=== PATIENT | female | born 1995 | race Caucasian/White ===

== ENCOUNTER → 2022-06-06 07:58 | Outpatient (CLI) | payer OTHER, SELFPAY ==
--- NOTE | 2022-06-06 08:01 | DI.MG.S_ITS ---
UNILATERAL RIGHT DIGITAL DIAGNOSTIC MAMMOGRAM 3D/2D: 06/06/2022 CLINICAL: Right breast lump. Comparison is made to exam dated: 06/06/2022 [facility]. The tissue of right breast is extremely dense, which lowers the sensitivity of mammography. There is architectural distortion in the right breast at 12 o'clock posterior depth. This correlates as palpated and with sonographic spiculated mass at 12:00 10cm from nipple measuring 16 x 12 x 15mm. No other significant masses or calcifications are seen in the breast. IMPRESSION: SUSPICIOUS OF MALIGNANCY The 10.5 cm architectural distortion in the right breast is at a high suspicion for malignancy and corresponds to sonographic spiculated mass at 12:00 10cm from nipple measuring 16 x 12 x 15mm. A core biopsy is recommended. Based on the Tyrer Cuzick model (a risk assessment model) the patient's lifetime risk is 14.8% and her 10 year risk is 0.3%. According to the ACR, ACS, and NCCN guidelines, an annual breast MRI exam along with mammogram is recommended if the patient's lifetime risk is 20% or greater. This exam was interpreted at Station ID: [id number]. NOTE: For mammograms, a report in lay terms will be sent to the patient. Approximately 15% of breast malignancies will not be visualized mammographically. In the management of a palpable breast mass, a negative mammogram must not discourage biopsy of a clinically suspicious lesion. Electronically Signed By: dR Vo M.D. lc/:06/06/2022 09:44:25 letter sent: Biopsy Required ACR BI-RADS Category 4c: Suspicious abnormality - moderate concern but not classic for malignancy 3344F
--- NOTE | 2022-06-06 08:01 | DI.US.S_ITS ---
LIMITED ULTRASOUND OF RIGHT BREAST AND AXILLA: 06/06/2022 CLINICAL: Palpable right breast lump. No prior exams were available for comparison. Color flow and real-time ultrasound of the right breast 12 o'clock, and axilla regions were performed. There is a 1.5 cm x 1.6 cm x 1.2 cm mass with a spiculated margin in the right breast at 12 o'clock middle depth 10 cm from the nipple. This mass is hypoechoic. A few prominent axillary lymph nodes are present with fatty joe. IMPRESSION: INCOMPLETE: NEEDS ADDITIONAL IMAGING EVALUATION The 1.5 cm x 1.6 cm x 1.2 cm mass in the right breast is at a moderate suspicion for malignancy. An ultrasound guided biopsy is recommended. A few prominent axillary lymph nodes are present with fatty joe. Mammogram separately reported. This exam was interpreted at Station ID: [id number]. Electronically Signed By: Rd Vo M.D. lc/:06/06/2022 09:18:04 Ultrasound BI-RADS: 0 Indeterminate
== END ==
PROVIDERS: Referring Provider Physician Assistant; Visit Provider Physician Assistant
DX: N63.15 Unspecified lump in the right breast, overlapping quadrants (principal); R92.8 Other abnormal and inconclusive findings on diagnostic imaging of breast
CPT/HCPCS: 76642; 77065; G0279

== ENCOUNTER → 2022-06-21 13:56 | Outpatient (CLI) | payer OTHER, SELFPAY ==
--- NOTE | 2022-06-21 | DI.MG.S_ITS ---
UNILATERAL RIGHT DIGITAL DIAGNOSTIC MAMMOGRAM 3D/2D POST-PROCEDURE IMAGING FOR MARKER PLACEMENT: 06/21/2022 CLINICAL: Right post clip. Comparison is made to exams dated: 06/06/2022 mammogram, 06/06/2022 ultrasound, and 06/21/2022 ultrasound biopsy - [facility]. The tissue of right breast is extremely dense, which lowers the sensitivity of mammography. There is a marker clip in the appropriate position in the right breast at 12 o'clock posterior depth. This marker clip placement is at the biopsy site. IMPRESSION: POST PROCEDURE MAMMOGRAM FOR MARKER PLACEMENT There was a successful marker clip placement in the right breast posterior depth. Based on the Tyrer Cuzick model (a risk assessment model) the patient's lifetime risk is 14.8% and her 10 year risk is 0.3%. According to the ACR, ACS, and NCCN guidelines, an annual breast MRI exam along with mammogram is recommended if the patient's lifetime risk is 20% or greater. This exam was interpreted at Station ID: [id number]. NOTE: For mammograms, a report in lay terms will be sent to the patient. Approximately 15% of breast malignancies will not be visualized mammographically. In the management of a palpable breast mass, a negative mammogram must not discourage biopsy of a clinically suspicious lesion. Electronically Signed By: Daniel cesar/batsheva:06/21/2022 16:41:26 ACR BI-RADS Category Post-procedure mammogram for marker placement
--- NOTE | 2022-06-21 | PATH_ITS ---
[facility] Accession Number: [id number] . 01 Material submitted: . breast - RIGHT BREAST MASS 12:00 APPROX 10 CM FROM NIPPLE . 01 Diagnosis: Right Breast Mass 12 o'clock, Approximately 10 cm from Nipple: Benign hyalinized fibroconnective tissue, portions of fibroadipose tissue, and very scant glandular elements. Negative for atypia or malignancy. No definite features of mass identified; please correlate with clinical and imaging findings. MRV 06/24/2022 1650 Local . 01 Electronically signed: . Petra Rocha MD, Pathologist NPI- [id number] . 01 Gross description: . Received in formalin, labeled right breast 12:00, are multiple pieces of newsome adipose tissue ranging in size from 0.4 x 0.1 x 0.1 cm to 1.0 x 0.4 x 0.3 cm. All pieces are entirely submitted in cassette A1. Collection date and time are listed as 06/21/2022 at 14:55 p.m., for a total approximate fixation time after processing of 50 hours. ([id number]) /FRR 06/22/2022 1238 Local . 01 Pathologist provided ICD-10: N63.10 . 01 CPT . 340159 Specimen Comment: A courtesy copy of this report has been sent to [facility] Performed at: 01 [facility] [address] [place] [address], [place], [place] [id number] MD Arnaldo Jimenez MD Phone: [phone]
--- NOTE | 2022-06-21 | DI.US.S_ITS ---
ULTRASOUND GUIDED BIOPSY RIGHT BREAST USING VACUUM DEVICE WITH MARKING DEVICE INSERTED AND POST DIGITAL MAMMOGRAPHIC AND ULTRASOUND IMAGIN06/21/2022 CLINICAL: Right breast mass. PATIENT CONSENT: Risks (minor bleeding, infection, vasovagal reaction and repeat procedure), benefits and alternatives were explained to the patient and written informed consent was obtained. Correlation is made to exams dated: 06/21/2022 mammogram, 06/06/2022 mammogram, and 06/06/2022 [facility]. An ultrasound guided biopsy using real-time ultrasound was performed for the 1.5 cm x 1.6 cm x 1.2 cm mass located in the right breast at 12 o'clock middle depth 10 cm from the nipple. This was described on the previous ultrasound report. The skin was prepped in the usual manner. Local anesthetic was administered to the access site. A skin andrew was made in the breast. The abnormality was approached from the lateral aspect. A 13 gauge biopsy needle was placed adjacent to the abnormality under ultrasound guidance. Once the needle was documented to be in the correct location, four specimens were obtained using the Mammotome biopsy system. A clip was inserted into the biopsy cavity. A sterile dressing was applied to the access site. Post procedure digital mammographic and ultrasound imaging demonstrates the location device resides in the targeted area. The specimens were sent to the laboratory for pathological analysis. IMPRESSION: ULTRASOUND GUIDED BIOPSY BENIGN Ultrasound guided biopsy of the 1.5 cm x 1.6 cm x 1.2 cm mass in the right breast at 12 o'clock middle depth 10 cm from the nipple was successful with no apparent post procedure complications. Pathology indicates benign hyalinized fibroconnective tissue, portions of fibroadiose tissue, and very scant glandular elements. No definite features of mass identied. Pathology results are discordant with imaging findings. Re-biopsy is recommended. This exam was interpreted at Station ID: [id number]. Daniel cesar,aty/:06/28/2022 17:56:52
== END ==
PROVIDERS: PCP Physician Assistant; Referring Provider Physician Assistant; Visit Provider Nurse Practitioner Family
DX: N63.15 Unspecified lump in the right breast, overlapping quadrants (principal)
CPT/HCPCS: 19083; 77065

== ENCOUNTER → 2022-07-11 09:10 | Outpatient (CLI) | payer OTHER, SELFPAY ==
[2022-07-11 11:41] LABS: COVID19 -Nasal RAPID Negative (Negative)
== END ==
PROVIDERS: PCP Physician Assistant; Visit Provider Surgery
DX: Z01.812 Encounter for preprocedural laboratory examination (principal); Z20.822 Contact with and (suspected) exposure to COVID-19
CPT/HCPCS: 87635; C9803

== ENCOUNTER 2022-07-12 11:10 | Day surgery (SDC) | payer OTHER, SELFPAY ==
[2022-07-09 14:39] VITALS: BMI 22.6
[2022-07-12] VITALS (7 sets, daily range): BP systolic 110–147; BP diastolic 59–87; PULSE 74–98; RESP 11–36; TEMP 37–37.6; O2SAT 10–100; BMI 22.6
--- NOTE | 2022-07-12 | PATH_ITS ---
[facility] Accession Number: [id number] . 01 Material submitted: . PART A: breast - RIGHT BREAST LUMPECTOMY PART B: body - POSTERIOR MARGIN . 01 Clinical history: . A: RIGHT BREAST LUMPECTOMY; SHORT STITCH= SUPERIOR, LONG STITCH= LATERAL B: POSTERIOR MARGIN; LONG STITCH= LATERAL, INK= TRUE POSTERIOR ISAC . 01 Diagnosis: A. Right Breast, Lumpectomy: Breast parenchyma with extensive/dense fibrosis and collagenous stroma with chronic inflammation; see comment. Biopsy site changes are present. No evidence of atypia, carcinoma in situ, or malignancy. . B. Right Breast, Posterior Margin, Excision: Breast parenchyma with extensive/dense fibrosis and collagenous stroma with chronic inflammation; see comment. No evidence of atypia, carcinoma in situ, or malignancy. . . 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 The histologic features consist of extensive keloidal/dense fibrosis with periductal, perilobular, and perivascular lymphocytic infiltrate, and epithelioid myofibroblasts; the latter is mainly present in part A, where the fibrosis is nodular forming ( 2 cm). Clinical and radiographic correlation is necessary. [facility] 07/21/2022 2358 Local . 01 Electronically signed: . Kelli Young MD, Pathologist NPI- [id number] . 01 Gross description: . A. Received in formalin labeled with the patient's name and right breast lumpectomy consists of an oriented fragment of white firm fibrous tissue weighing 35 grams and measuring 1.6 cm SI, 5.1 cm AP, and 7.2 cm ML. A small amount of yellow adipose is identified on the exterior surface and no skin is identified. Two sutures are attached; short designates superior and long designates lateral per the requisition. The specimen is inked as follows: anterior yellow, posterior black, medial blue, lateral green, superior orange, inferior red. The specimen is serially sectioned from lateral to medial into seventeen 3 mm slices to reveal a diffusely white-newsome firm cut surface with a small amount of yellow adipose tissue. The diffusely firm area approaches all margins. A circular hard pale area is located in slices 6-11 and measures approximately 2.0 x 1.2 x 1.2 cm. This area grossly approaches the superior margin and measures 0.3 cm from the inferior margin, 0.3 cm from the anterior margin, and greater than 0.5 cm from all remaining margins. No biopsy clip is identified. Product Builder sections are submitted as follows: . A1: Rep slice 1, lateral margin, perpendicular. A2: Entire slice 3. A3: Rep slice 5. A4: Rep slice 7. A5-A6: Entire slice 9. A7-A8: Entire slice 11. A9: Rep slice 13. A10: Rep slice 15. A11: Rep slice 17, medial margin perpendicular. Additional sections for part A are submitted as follows after review by Dr. Young: A12-A13: Entire slice 8. A14-A15: Entire slice 10. A16: Product Builder slice 16. ([id number]) . The specimen was removed on 07/12/2022 at approximately 1500. Time in formalin unknown. Cold ischemic time cannot be calculated. Total fixation time is greater than 72 hours. . B. Received in formalin labeled with the patient's name and posterior margin consists of a 53-gram fragment of white to yellow fibroadipose tissue measuring 8.0 x 6.4 x 1.8 cm. The specimen has a concave and a convex surface with a long black suture at one edge designating lateral, and a strip of blue surgical ink along the concave surface designating the true posterior isac per the requisition. The concave surgically inked surface is inked blue while the opposing convex surface is inked black. The specimen is serially sectioned from lateral to medial into sixteen 4 mm slices to reveal a white firm cut surface with minimal yellow adipose tissue. The white firm tissue approaches all margins. No distinct lesions or biopsy clip are identified. Product Builder sections are submitted as follows: . B1: Entire slice 2. B2: Rep slice 4. B3: Rep slice 6. B4-B5: Entire slice 8. B6: Rep slice 10. B7: Rep slice 12. B8: Rep slice 14. B9-B10: Entire slice 16. . The specimen was removed on 07/12/2022 with a procedure time of approximately 1500. Time in formalin not provided. Cold ischemic time cannot be calculated. Total fixation time is greater than 72 hours. ([id number]) /MRV 07/21/2022 2358 Local . 01 Pathologist provided ICD-10: N63.0 . 01 CPT . 446112, [id number] Specimen Comment: A courtesy copy of this report has been sent to [phone] Performed at: 01 [facility] [address] [place] [address], [place], [place] [id number] MD Arnaldo Jimenez MD Phone: [phone]
[2022-07-12] MEDS: LACTATED RINGERS 1,000 ML 100 ML IV (12:03)
--- NOTE | 2022-07-12 13:05 | SUR.PREOP ---
07/12/22-1199-Dr Gray made aware of abnormal Blood glucose x 2 checks with hospital monitor device, yet runs 92 on own continuous monitor device. Poor blood flow - cold hands. Will continue by patients monitor device. [place] left arm and insulin drip continuous to rt hip . saftey device-will shut infusion down if BS runs below 90 per patient.
--- NOTE | 2022-07-12 13:16 | PM.PREOP ---
Pre-operative Note Interval Note History & Physical reviewed/Exam performed by Physician: Yes Changes to H&P: No
[2022-07-12] MEDS: CEFAZOLIN 2 GM/100 ML PREMIX 100 ML IV (13:35)
--- NOTE | 2022-07-12 13:42 | SUR.OPER ---
Supine on padded OR bed, head on pillow, arms secured on padded arm boards at <90 degrees abduction, legs uncrossed, safety belt at thigh, tape over blanket over lower legs.
[2022-07-12] MEDS: BUPIVACAINE 0.5% (PF) VIAL 30 ML INJ (13:50)
--- NOTE | 2022-07-12 15:02 | PM.OP.1 ---
Operative Date/Time/Diagnoses Date of procedure: 07/12/22 Time of procedure: 15:02 Pre-op diagnosis: right breast mass Post-op diagnosis: same Procedure & Clinicians Procedure: right lumpectomy Same procedure as scheduled: Yes Indications: 27-year-old woman with a painful 2 cm mass spiculated right breast mass. Biopsy demonstrates benign fibroconnective tissue of without evidence of malignancy. she requests excision of the mass for diagnostic and therapeutic purpose Surgeon: Darin Be Anesthesia Type: General Operative Notes Findings: there is a firm 2 cm nodule within a large within a large fibroadenoma Specimen(s): other (right lumpectomy short stich superior long stich lateral. posterior margin ink lopez the true posterior margin long stitch lateral.) Estimated Blood Loss (mL): 50 Procedure in detail: patient was brought to the operating room placed supine on the table. Bilateral lower extremity compression devices were applied. She received Ancef prior skin incision. General anesthesia was induced she was intubated with an LMA. She was prepped and draped in sterile fashion. Time-out was performed. A linear incision was made on the upper aspect of the right breast. The right breast tissue was markedly abnormal it is consistent with most likely a fibroadenoma. Within the mass there was a palpable approximately 2 cm nodule which was very firm. The nodule was excised within a large firm poorly encapsulated fibrous mass, likely 15 cm in maximal dimension. The specimen was labeled right lumpectomy short stitch superior long stitch lateral. The mass was quite large and continue to extend to the posterior aspect of the breast towards the chest wall. An additional specimen was taken labeled posterior margin. The true posterior margin was marked with a marking pen and stitch was placed to indicate the lateral edge. There was some residual fibrous tissues within the breast posterior to the nipple. However this is not where her pain was and inorder to resec all the fibrous tissue would leave her with a significant deformity of the breast. It is possible this represents a phyllodes tumor and if so she will require a wider future resection to obtain clear margins but this would best be performed following complete pathological review and more discussion with the patient. Hemostasis was achieved the wound was irrigated and the subcutaneous tissue was closed with Vicryl skin closed with a running Vicryl suture followed by the application of Dermabond. She tolerated procedure well was extubated and transferred to recovery in stable condition Complications: none Post-operative Condition: stable Disposition: same day surgery
== END 2022-07-12 16:01 | disposition home or self-care (01) ==
PROVIDERS: PCP Physician Assistant; Referring Provider Surgery; Visit Provider Surgery
PROC: (CPT 19301; principal; 2022-07-12 12:15)
DX: N63.11 Unspecified lump in the right breast, upper outer quadrant (principal); E10.9 Type 1 diabetes mellitus without complications; Z79.4 Long term (current) use of insulin
CPT/HCPCS: 19301; 81025; 82962; J0690; J1170; J2250; J2405; J2704; J3010

== ENCOUNTER → 2022-10-21 14:17 | Outpatient (CLI) | payer OTHER, SELFPAY ==
--- NOTE | 2022-10-21 | DI.MG.S_ITS ---
UNILATERAL RIGHT DIGITAL DIAGNOSTIC MAMMOGRAM 3D/2D: 10/21/2022 CLINICAL: Breast lump. Comparison is made to exams dated: 06/06/2022 ultrasound, 06/06/2022 mammogram, and 06/21/2022 ultrasound [facility]. The right breast is extremely dense, which lowers the sensitivity of mammography (category d />75% glandular tissue). Post operative finding in the right breast. The right breast density is increased compared to the preoperative mammogram. No significant masses, calcifications, or other findings are seen in the breast. IMPRESSION: INCOMPLETE: NEEDS ADDITIONAL IMAGING EVALUATION No mammographic evidence of malignancy. Increased right breast density. This could be due to diffuse edema. No obvious seroma. A targeted ultrasound is recommended and will immediately follow. Based on the Tyrer Cuzick model (a risk assessment model) the patient's lifetime risk is 14.7% and her 10 year risk is 0.4%. According to the ACR, ACS, and NCCN guidelines, an annual breast MRI exam along with mammogram is recommended if the patient's lifetime risk is 20% or greater. This exam was interpreted at Station ID: [id number]. NOTE: For mammograms, a report in lay terms will be sent to the patient. Approximately 15% of breast malignancies will not be visualized mammographically. In the management of a palpable breast mass, a negative mammogram must not discourage biopsy of a clinically suspicious lesion. Electronically Signed By: Osmar Cullen M.D. slc/:10/21/2022 15:57:01 ACR BI-RADS Category 0: Incomplete 3340F
--- NOTE | 2022-10-21 14:18 | DI.US.S_ITS ---
LIMITED ULTRASOUND OF RIGHT BREAST: 10/21/2022 CLINICAL: Patient returns today to evaluate an asymmetry in the right breast. Comparison is made to exams dated: 10/21/2022 mammogram, 06/21/2022 ultrasound biopsy, 06/21/2022 mammogram, 06/06/2022 mammogram, and 06/06/2022 ultrasound - [facility]. Color flow and real-time ultrasound of the right breast 3 o'clock, 6 o'clock, 9 o'clock, and 12 o'clock regions were performed. Vargas scale images of the real-time examination were reviewed. No significant abnormalities were seen sonographically in the right breast. No focal mass. No seroma or hematoma demonstrated. No skin thickening appreciated. IMPRESSION: NEGATIVE There is no sonographic evidence of malignancy. No focal mass. No seroma or hematoma demonstrated. Exam findings were discussed with the patient. Patient denies pitting edema. Patient is advised to monitor for significant change. Clinical follow-up is recommended. Breast MRI might be helpful to evaluate for edema. Consider MRI if symptoms worsen or persist. This exam was interpreted at Station ID: [id number]. Electronically Signed By: Osmar Cullen M.D. slc/:10/21/2022 16:02:21 letter sent: Clinical Evaluation Ultrasound BI-RADS: 1 Negative
== END ==
PROVIDERS: PCP Physician Assistant; Referring Provider Surgery; Visit Provider Surgery
DX: N63.10 Unspecified lump in the right breast, unspecified quadrant (principal); R92.2 Inconclusive mammogram
CPT/HCPCS: 76642; 77065; G0279

== ENCOUNTER → 2023-11-13 12:44 | Outpatient (CLI) | payer OTHER, SELFPAY ==
--- NOTE | 2023-11-13 12:44 | DI.US.S_ITS ---
LIMITED ULTRASOUND OF LEFT BREAST AND AXILLA: 11/13/2023 CLINICAL: Patient returns today to evaluate a focal asymmetry in the left breast. Comparison is made to exams dated: 10/21/2022 ultrasound, 10/21/2022 mammogram, 06/21/2022 ultrasound biopsy, and 06/06/2022 ultrasound - [facility]. Color flow and real-time ultrasound of the left breast 9-3 o'clock, and axilla regions were performed. Vargas scale images of the real-time examination were reviewed. Dense fibroglandular tissue but no mass is identifed in the patient-indicated palpable area of concern. No significant abnormalities were seen sonographically in the left axilla. IMPRESSION: NEGATIVE Dense fibroglandular tissue but no mass is identifed in the patient-indicated palpable area of concern. Recommend clinical follow up. There is no sonographic evidence of malignancy. Recommend annual screening mammograms beginning at age 40 if the patient is not at an increased risk for breast malignancy. This exam was interpreted at Station ID: [id number]. Electronically Signed By: Daniel Bolden M.D. ar/:11/13/2023 13:38:34 letter sent: Clinical Evaluation Ultrasound BI-RADS: 1 Negative
== END ==
LOC: US 12:44
PROVIDERS: PCP Student in an Organized Health Care Education/Training Program; Referring Provider Student in an Organized Health Care Education/Training Program; Visit Provider Student in an Organized Health Care Education/Training Program
DX: N63.20 Unspecified lump in the left breast, unspecified quadrant (principal); R92.322 Mammographic fibroglandular density, left breast
CPT/HCPCS: 76642